=== PATIENT | male | born 1970 | race Caucasian/White ===

== ENCOUNTER 2016-10-24 08:46 | Emergency (ER) | payer OTHER ==
[2016-10-24 09:26] VITALS: BP 128/104
--- NOTE | 2016-10-24 10:30 | UC ---
Skin Complaint HPI - HPI Summary HPI Summary: patient has spot on neck that is hard and callused, been there since Jun 2016. he also has a mole on his head he keeps knicking when he shaved. - History of Current Complaint Chief Complaint: UCSkin Time Seen by Provider: 10/24/16 10:07 Stated Complaint: SKIN COMPLAINT Hx Obtained From: Patient Onset/Duration: Sudden Onset, Lasting Weeks Skin Exposure Onset/Duration: Weeks Ago Timing: Constant Onset Severity: Mild Current Severity: None Pain Intensity: 0 Pain Scale Used: 0-10 Numeric Location: Other - neck Character: Pruritus, Raised Aggravating: Nothing Alleviating: Nothing Associated Signs & Symptoms: Positive: Negative - unknown, started as a pimple - Allergy/Home Medications Allergies/Adverse Reactions: Allergies Allergy/AdvReac Type Severity Reaction Status Date / Time No Known Allergies Allergy Verified 10/24/16 09:20 Review of Systems Constitutional: Negative Skin: Other - callus Eyes: Negative ENT: Negative Respiratory: Negative Cardiovascular: Negative Gastrointestinal: Negative Genitourinary: Negative Motor: Negative Neurovascular: Negative Musculoskeletal: Negative Neurological: Negative Psychological: Negative All Other Systems Reviewed And Are Negative: Yes PMH/Surg Hx/FS Hx/Imm Hx Previously Healthy: Yes - Surgical History Surgical History: None - Family History Known Family History: Positive: Hypertension Negative: Cardiac Disease - Social History Alcohol Use: None Substance Use Type: None Smoking Status (MU): Heavy Every Day Tobacco Smoker Type: Cigarettes Amount Used/How Often: 1 packs daily - Immunization History Most Recent Influenza Vaccination: not this season Physical Exam Triage Information Reviewed: Yes Appearance: Well-Appearing, Ill-Appearing, Pain Distress Vital Signs: Initial Vital Signs Temp 97.7 F 10/24/16 09:21 Pulse 97 10/24/16 09:21 Resp 18 10/24/16 09:21 BP 128/104 10/24/16 09:21 Pulse Ox 99 10/24/16 09:21 Vital Signs Reviewed: Yes Eye Exam: Normal Eyes: Positive: Conjunctiva Clear ENT Exam: Normal ENT: Positive: Normal ENT inspection, Hearing grossly normal, Pharynx normal, TMs normal Dental Exam: Normal Neck exam: Normal Neck: Positive: Supple, Nontender, No Lymphadenopathy Respiratory Exam: Normal Respiratory: Positive: Chest non-tender, Lungs clear, Normal breath sounds Cardiovascular Exam: Normal Cardiovascular: Positive: RRR, No Murmur, Pulses Normal Abdominal Exam: Normal Abdomen Description: Positive: Nontender, No Organomegaly, Soft Bowel Sounds: Positive: Present Musculoskeletal Exam: Normal Musculoskeletal: Positive: Strength Intact, ROM Intact, No Edema Neurological Exam: Normal Neurological: Positive: Alert, Muscle Tone Normal Psychological Exam: Normal Psychological: Positive: Normal Response To Family, Age Appropriate Behavior Skin: Positive: Other - 1 mole on right posterior scapl, 1.5 cm in diameter. regular margins, no variation in coloration. 1 scaly callused raised lesion on right posterior neck. discreet 1 cm in diameter, no bleeding, or unusual coloration Course/Dx - Course Course Of Treatment: hx obtained, exam performed, no meds prescribed. referral to derm given. - Diagnoses Provider Diagnoses: mole. callus Discharge - Discharge Plan Condition: Stable Disposition: HOME Referrals: No Primary Care Phys,NOPCP [Primary Care Provider] - Additional Instructions: The mole on your head does not look atypical, If if is bothersome, follow up with behavioral health consultant for removal. The spot on your neck appears to be a callus. follow up with Dr Manzo for removal. in the meantime try to following OTC cream. Triderma psorasis cream - available at [facility].
== END 2016-10-24 10:30 | disposition home or self-care (01) ==
LOC: UCCORT 08:46
DX: D22.4 Melanocytic nevi of scalp and neck (principal); L84 Corns and callosities; F17.210 Nicotine dependence, cigarettes, uncomplicated
CPT/HCPCS: 99211; G0463

== ENCOUNTER 2017-04-13 10:36 | Emergency (ER) | payer OTHER ==
[2017-04-13 10:57] VITALS: BP 118/83
--- NOTE | 2017-04-13 11:16 | UC ---
Throat Pain/Nasal Jr HPI - HPI Summary HPI Summary: patient in complaining of URI symptoms and increased pain on the right maxillary sinus. denies fever. - History of Current Complaint Chief Complaint: UCRespiratory Stated Complaint: SINUS Time Seen by Provider: 04/13/17 11:01 Hx Obtained From: Patient Onset/Duration: Sudden Onset, Lasting Days Severity: Moderate Associated Signs & Symptoms: Positive: Dysphagia, Hoarseness, Sinus Discomfort, Nasal Discharge - Allergies/Home Medications Allergies/Adverse Reactions: Allergies Allergy/AdvReac Type Severity Reaction Status Date / Time No Known Allergies Allergy Verified 04/13/17 10:49 Home Medications: Home Medications Arsctpcrcvmgl-Yuqmxracygm-Mg [Theraflu Cold & Cough] 1 chuck PO PRN 04/13/17 [ History] PMH/Surg Hx/FS Hx/Imm Hx Previously Healthy: Yes - Surgical History Surgical History: None - Family History Known Family History: Positive: Hypertension Negative: Cardiac Disease - Social History Alcohol Use: None Substance Use Type: None Smoking Status (MU): Heavy Every Day Tobacco Smoker Type: Cigarettes Amount Used/How Often: 1 packs daily Household Exposure Type: Cigarettes - Immunization History Most Recent Influenza Vaccination: not this season Review of Systems Constitutional: Fatigue Skin: Negative Eyes: Negative ENT: Sore Throat, Sinus Congestion, Sinus Pain/Tenderness Respiratory: Cough Cardiovascular: Negative Gastrointestinal: Negative Genitourinary: Negative Motor: Negative Neurovascular: Negative Musculoskeletal: Negative Neurological: Negative Psychological: Negative All Other Systems Reviewed And Are Negative: Yes Physical Exam Triage Information Reviewed: Yes Appearance: Well-Nourished, Ill-Appearing, Pain Distress Vital Signs: Initial Vital Signs Temp 97.6 F 04/13/17 10:50 Pulse 94 04/13/17 10:50 Resp 18 04/13/17 10:50 BP 118/83 04/13/17 10:50 Pulse Ox 98 04/13/17 10:50 Vital Signs Reviewed: Yes Eye Exam: Normal Eyes: Positive: Conjunctiva Clear ENT: Positive: Pharyngeal erythema, Nasal congestion, TMs normal, Other: - right nasal turbid red and swollen Dental Exam: Normal Neck exam: Normal Neck: Positive: Supple, Nontender, No Lymphadenopathy Respiratory Exam: Normal Respiratory: Positive: Chest non-tender, Lungs clear, Normal breath sounds Cardiovascular Exam: Normal Cardiovascular: Positive: RRR, No Murmur, Pulses Normal Abdominal Exam: Normal Abdomen Description: Positive: Nontender, No Organomegaly, Soft Bowel Sounds: Positive: Present Musculoskeletal Exam: Normal Musculoskeletal: Positive: Strength Intact, ROM Intact, No Edema Neurological Exam: Normal Psychological Exam: Normal Skin Exam: Normal Throat Pain/Nasal Course/Dx - Course Course Of Treatment: hx obtained, exam performed ,meds reviewed, treated for sinusitis - Differential Dx/Diagnosis Differential Diagnosis/HQI/PQRI: Pharyngitis, Sinusitis Provider Diagnoses: right maxillary sinusitis Discharge - Discharge Plan Condition: Stable Disposition: HOME Prescriptions: Azithromycin TAB* [Zithromax TAB (Z-CHUCK) 250 mg #6 tabs] 2 tab PO .TODAY, THEN 1 DAILY #1 chuck predniSONE TAB* [Deltasone TAB*] 40 mg PO DAILY #14 tab Patient Education Materials: Sinusitis (ED), Warm Compress or Soak (ED) Referrals: No Primary Care Phys,NOPCP [Primary Care Provider] - Additional Instructions: 1. take the medication as prescribed. 2. Increase your fluid intake and get plenty of rest.
== END 2017-04-13 11:23 | disposition home or self-care (01) ==
LOC: UCCORT 10:36
DX: J32.0 Chronic maxillary sinusitis (principal); F17.210 Nicotine dependence, cigarettes, uncomplicated
CPT/HCPCS: 99212; G0463

== ENCOUNTER 2017-12-27 08:02 | Emergency (ER) | payer OTHER ==
[2017-12-27 08:27] VITALS: BP 148/91
--- NOTE | 2017-12-27 08:53 | UC ---
Skin Complaint HPI - HPI Summary HPI Summary: 47 yo male with chronic tinea cruris presents with worsening rash no f/c no abscess - History of Current Complaint Chief Complaint: UCSkin Time Seen by Provider: 12/27/17 08:52 Stated Complaint: PERSONAL/SKIN COMPLAINT Hx Obtained From: Patient Onset/Duration: Gradual Onset, Other - yrs Timing: Constant Onset Severity: Mild Current Severity: Moderate Pain Intensity: 7 - after using jock itch spray Pain Scale Used: 0-10 Numeric Location: Other - gluteal cleft/ Character: Pruritus, Pain, Redness Aggravating Factor(s): Nothing Alleviating Factor(s): Nothing Associated Signs & Symptoms: Positive: Rash - Allergy/Home Medications Allergies/Adverse Reactions: Allergies Allergy/AdvReac Type Severity Reaction Status Date / Time No Known Allergies Allergy Verified 12/27/17 08:17 Review of Systems Constitutional: Negative Skin: Rash Eyes: Negative ENT: Negative Respiratory: Negative Cardiovascular: Negative Gastrointestinal: Negative Genitourinary: Negative Motor: Negative Neurovascular: Negative Musculoskeletal: Negative Neurological: Negative Psychological: Negative Is Patient Immunocompromised?: No All Other Systems Reviewed And Are Negative: Yes PMH/Surg Hx/FS Hx/Imm Hx Previously Healthy: Yes - Surgical History Surgical History: None - Family History Known Family History: Positive: Hypertension Negative: Cardiac Disease - Social History Alcohol Use: None Substance Use Type: Excessive Caffeine Smoking Status (MU): Heavy Every Day Tobacco Smoker Type: Cigarettes Amount Used/How Often: 1 packs daily Household Exposure Type: Cigarettes - Immunization History Most Recent Influenza Vaccination: not this season Physical Exam Triage Information Reviewed: Yes Appearance: Well-Appearing, No Pain Distress, Well-Nourished Vital Signs: Initial Vital Signs Temp 98.5 F 12/27/17 08:18 Pulse 90 12/27/17 08:18 Resp 18 12/27/17 08:18 BP 148/91 12/27/17 08:18 Pulse Ox 96 12/27/17 08:18 Vital Signs Reviewed: Yes Eyes: Positive: Conjunctiva Clear ENT: Positive: Hearing grossly normal. Negative: Nasal congestion, Nasal drainage, Muffled voice, Hoarse voice Dental Exam: Normal Neck: Positive: Supple, Nontender, No Lymphadenopathy Respiratory: Positive: Lungs clear, Normal breath sounds, No respiratory distress, No accessory muscle use Cardiovascular: Positive: RRR, No Murmur Musculoskeletal: Positive: ROM Intact, No Edema Psychological Exam: Normal Skin Exam: Other - moist/red rash groin and gluteal cleft Course/Dx - Diagnoses Provider Diagnoses: 1. tinea cruris. 2. tobacco use/abuse. 3. elevated BP without dx of HTN Discharge - Sign-Out/Discharge Documenting (check all that apply): Discharge - Discharge Plan Condition: Stable Disposition: HOME Prescriptions: Fluconazole 150 MG (NF) [Diflucan 150 mg (NF)] 150 mg PO WEEKLY #4 tab Mupirocin 2% OINT* [Bactroban 2 % Oint*] 1 applic TOPICAL TID #1 tube predniSONE [Deltasone] 40 mg PO DAILY #10 tab Patient Education Materials: Jock Itch (ED) Referrals: No Primary Care Phys,NOPCP [Primary Care Provider] - Additional Instructions: recheck in 2 weeks if not better your BP is a little high and should be followed find a studio musician - Billing Disposition and Condition Condition: STABLE Disposition: HOME
== END 2017-12-27 09:10 | disposition home or self-care (01) ==
LOC: UCCORT 08:02
DX: B35.6 Tinea cruris (principal); R03.0 Elevated blood-pressure reading, without diagnosis of hypertension; F17.210 Nicotine dependence, cigarettes, uncomplicated
CPT/HCPCS: 99212; G0463

== ENCOUNTER 2018-12-06 10:16 | Emergency (ER) | payer OTHER ==
[2018-12-06 12:26] VITALS: BP 148/94
--- NOTE | 2018-12-06 12:52 | UC ---
UC General HPI - HPI Summary HPI Summary: 1. COUGH WITH CONGESTION X 1 WEEK. NO FEVER, SOB, CP, ASTHMA OR COPD. + SMOKER. 2. LOWER ABDOMINAL "GASSY BLOATING" SINCE LAST PM. ALSO VOMITED A YELLOWISH- GREEN X 1. NO APPETITE. DENIES FEVER, BLOOD IN STOOL AND HX IBD. NO HX DIVERTICULITIS. HAS NEVER HAD A COLONOSCOPY. - History of Current Complaint Chief Complaint: UCGI Stated Complaint: COUGH,CONGESTION Time Seen by Provider: 12/06/18 12:44 Hx Obtained From: Patient Onset/Duration: Gradual Onset Timing: Constant Pain Intensity: 0 Associated Signs & Symptoms: Positive: Vomiting - X1. Negative: Diarrhea, Fever - Allergy/Home Medications Allergies/Adverse Reactions: Allergies Allergy/AdvReac Type Severity Reaction Status Date / Time No Known Allergies Allergy Verified 12/06/18 12:26 Home Medications: Home Medications Ibuprofen TAB* [Motrin TAB* 400 MG] 400 mg PO ONCE PRN 12/06/18 [History Confirmed 12/06/18] PMH/Surg Hx/FS Hx/Imm Hx - Additional Past Medical History Additional PMH: LACTOSE INTOLERANCE - Surgical History Surgical History: None - Family History Known Family History: Positive: Hypertension, Other - SMALL CELL LUNG CA BOTH PARENTS Negative: Cardiac Disease - Social History Occupation: Employed Full-time Alcohol Use: None Substance Use Type: Excessive Caffeine Substance Use Comment - Amount & Last Used: one pot coffee daily, or Red Bull; last caffeine today Smoking Status (MU): Heavy Every Day Tobacco Smoker Type: Cigarettes Amount Used/How Often: 1 packs daily Household Exposure Type: Cigarettes - Immunization History Most Recent Influenza Vaccination: not this season Review of Systems All Other Systems Reviewed And Are Negative: Yes Constitutional: Positive: Other - NO APPETITE. Negative: Fever Respiratory: Positive: Cough Gastrointestinal: Positive: Abdominal Pain - "GASSY-BLOATING", Vomiting - X1. Negative: Diarrhea Physical Exam Triage Information Reviewed: Yes Appearance: Well-Appearing Vital Signs: Initial Vital Signs Temp 97.8 F 12/06/18 12:15 Pulse 92 12/06/18 12:15 Resp 18 12/06/18 12:15 BP 148/94 12/06/18 12:15 Pulse Ox 99 12/06/18 12:15 Vital Signs Reviewed: Yes Eyes: Positive: Conjunctiva Clear ENT: Positive: Normal ENT inspection Neck: Positive: Supple, Nontender, No Lymphadenopathy Respiratory: Positive: No respiratory distress, Decreased breath sounds, Other: - fOCAL CRACKLES AND WHEEZES IN LLL. Cardiovascular: Positive: RRR, No Murmur Abdomen Description: Positive: Other: - HYPERACTIVE BS. SOFT. TENDER WITH GUARDING ON DEEP PALPATION IN LLQ ONLY. NO MASS/HSM/CVA TENDERNESS OR PULSATILE MASSES. Male Genital Exam: Positive: Other - DEFERED, NO PAIN Musculoskeletal: Positive: ROM Intact Neurological: Positive: Alert Psychological: Positive: Age Appropriate Behavior Skin Exam: Normal Course/Dx - Course Course Of Treatment: GIVEN PT'S LONG HX OF SMOKING, CA IS IN HIS DIFFERENTIAL ALONG WITH PNEUMONIA, NODULES, BRONCHITIS AND COPD. CXR INDICATED. A U/S IS STANDARD OF CARE FOR ABDOMINAL COMPLAINTS. THE LLQ PAIN/GUARDING ON EXAM REQUIRES AN ABDOMINAL WORKUP WITH LABS AND CT. GIVEN THE PT'S COMPLEXITY, ER TRANSFER INDICATED; HOWEVER, PT ADAMANT HE WILL NOT GO CITING IT IS NOT NECESSARY. I ADVISED OF POSSIBLE DIVERTICULITIS, ABSCESS, COLON CA AND OTHER BOWEL PATHOLOGY-HE STILL REFUSED ER TRANSFER. AN ALTERNATIVE BUT NOT BEST PRACTICE, I OFFERED TO DO A CXR, U/A AND NON CONTRAST CT HERE. PT RESPONDED THAT "THIS IS LIKE A USED [employer] WHERE THEY TRY TO RUN UP THE BILL". AT THIS POINT HE WAS AGITATED AND GOING TO WALK OUT. I DECIDED TO TX THIS PT PRESUMPTIVELY FOR PNEUMONIA AND DIVERTICULITIS BECAUSE THESE ARE THE MOST LIKELY DIAGNOSES. TO NOT TX IS NOT IN THE PT'S BEST INTEREST. I WILL BE USING FLAGYL AND LEVAQUIN. POSSIBLE SIDE EFFECTS OF LEVAQUIN WERE DISCUSSED WITH THE PT AND HE AGREES TO TAKE THE RISKS. I ADVISED PT TO TAKE A PROBIOTIC WHILE ON THE ANTIBIOTICS. PT AGREES TO CLOSE F/U AND WAS GIVEN A REFERRAL. PT STATES HE WILL GO TO THE ER FOR ANY WORSENING. PT IS A&O X3, HE IS ABLE TO MAKE DECISIONS THUS I MUST RESPECT HIS REFUSAL TO GO TO THE ER. HE WILL BE LEAVING AMA. - Diagnoses Provider Diagnosis: Left against medical advice, Cough, LLQ abdominal tenderness Discharge - Sign-Out/Discharge Documenting (check all that apply): Patient Departure All imaging exams completed and their final reports reviewed: No Studies - Discharge Plan Condition: Stable Disposition: AGAINST MEDICAL ADVICE Prescriptions: Levofloxacin TAB* [Levaquin TAB*] 750 mg PO DAILY 10 Days #10 tab metroNIDAZOLE [Flagyl 500 MG TAB] 500 mg PO TID 10 Days #30 tab Patient Education Materials: Diverticulitis (ED), Pneumonia (ED) Referrals: Evelina Toledo MD [Medical Doctor] - 2 Days Additional Instructions: YOU MAY STILL GO TO THE ER AT ANY TIME. TAKE A PROBIOTIC DAILY WHILE ON THE ANTIBIOTICS. - Billing Disposition and Condition Condition: STABLE Disposition: Against Medical Advice
== END 2018-12-06 13:41 | disposition left against medical advice (07) ==
LOC: UCCORT 10:16
DX: R05 Cough (principal); R10.814 Left lower quadrant abdominal tenderness; R09.81 Nasal congestion; F17.210 Nicotine dependence, cigarettes, uncomplicated
CPT/HCPCS: 99212; G0463